=== PATIENT | female | born 1965 | race Two or more races ===

== ENCOUNTER 2020-01-06 12:51 | Outpatient (CLI) | payer MEDICAID ==
--- NOTE | 2020-01-06 19:45 | Consultation ---
DATE OF CONSULTATION: 01/06/2020 CONSULTING PHYSICIAN: Tobin Dill MD CHIEF COMPLAINT: Blood in stool. PAST MEDICAL HISTORY: 1. Hypertension. 2. . PAST SURGICAL HISTORY: None. MEDICATIONS: Please see medication reconciliation list. FAMILY HISTORY: Noncontributory. SOCIAL HISTORY: Patient occasionally drinks alcohol. No IV drug abuse. No tobacco abuse. ALLERGIES: No known drug allergies. REVIEW OF SYSTEMS: Positive for rectal bleeding and bloating, otherwise negative. PHYSICAL EXAMINATION: GENERAL: A well-developed female, in no acute distress. HEENT: Normocephalic, atraumatic. Sclerae anicteric. NECK: Supple. No evidence of obvious lymphadenopathy. CARDIOVASCULAR: Regular rate and rhythm. Plus S1 and S2. LUNGS: Clear to auscultation bilaterally. ABDOMEN: Positive bowel sounds. Soft and nontender. No rebound. No guarding. No peritoneal sign. EXTREMITIES: No cyanosis, no clubbing, no edema. ASSESSMENT AND PLAN: This is a 54-year-old female with blood in stool, needs endoscopy and colonoscopy. Never had any of them before. Plan for both when authorization is obtained. Tobin Dill M.D. DR: Jm JOB#: [id number] CC:
[2020-01-07] MEDS ORDERED: ATORVASTATIN CA20 MG ORAL (11:00)
[2020-01-07] MEDS ORDERED: ASPIRIN EC81 MG ORAL (11:00)
[2020-01-07] MEDS ORDERED: LISINOPRIL20 MG ORAL (11:00)
[2020-01-07] MEDS ORDERED: HYDROCHLOROTHIA25 MG ORAL (11:00)
== END 2020-01-06 14:51 | disposition home or self-care (01) ==
LOC: PAN 12:51
DX: K62.5 Hemorrhage of anus and rectum (principal); R14.0 Abdominal distension (gaseous); I10 Essential (primary) hypertension; K92.1 Melena
CPT/HCPCS: G0463